=== PATIENT | male | born 1970 | race Caucasian/White ===

== ENCOUNTER 2020-07-04 12:22 | Emergency (ER) | payer SELFPAY ==
[~2020-07-04] VITALS: Ht 182 cm; Wt 97.0 kg
--- NOTE | 2020-07-04 12:44 | ED Back Pain ---
General Chief Complaint: Back Problems Stated Complaint: BACK PAIN Source of Information: Patient Exam Limitations: No Limitations History of Present Illness Date Seen by Provider: Jul 04, 2020 Time Seen by Provider: 12:43 Initial Comments To ER with c/o midline low back pain that radiates down bilateral thighs terminating mid thigh. No loss of bowel or bladder control, no numbness of the genitals no fevers or chills no trauma no IV drug use. This is been getting intermittently worse for a few weeks. He has a history of back troubles. Location: Lumbar Spine, Paraspinous Muscles Timing/Duration: 2-3 Days Severity: Moderate Associated Symptoms: No numbness in legs/feet; tingling in legs/feet, lower back pain; No loss of bladder control, No loss of bowel control Allergies and Home Medications Allergies Coded Allergies: No Known Drug Allergies (Unverified , 07/04/20) Home Medications Hydrocodone/Acetaminophen 1 Each Tablet, 1 TAB PO Q4H PRN for PAIN-MODERATE (5- 7) Prescribed by: MARIN HERNANDEZ on 07/04/20 1343 Prednisone 20 Mg Tab, 40 MG PO DAILY Prescribed by: MARIN HERNANDEZ on 07/04/20 1341 Patient Home Medication List Home Medication List Reviewed: Yes Review of Systems Constitutional: see HPI EENTM: see HPI Respiratory: no symptoms reported Cardiovascular: no symptoms reported Genitourinary: no symptoms reported Musculoskeletal: see HPI, back pain Skin: no symptoms reported Psychiatric/Neurological: No Symptoms Reported Physical Exam Vital Signs Vital Signs - First Documented 07/04/20 12:25 Temp 36.9 Pulse 73 Resp 20 B/P (MAP) 108/74 (85) Pulse Ox 100 Capillary Refill : Height, Weight, BMI Height: '" Weight: lbs. oz. kg; BMI Method: General Appearance: No Apparent Distress, WD/WN Neck: Full Range of Motion, Normal Inspection Respiratory: Normal Breath Sounds, No Accessory Muscle Use, No Respiratory Distress Gastrointestinal: Normal Bowel Sounds, Non Tender, Soft Neurologic/Psychiatric: Alert, Oriented x3 Skin: Normal Color, Warm/Dry Progress/Results/Core Measures Results/Orders My Orders Orders - MARIN HERNANDEZ APRN Ct Lumbar Spine Wo (07/04/20 12:39) Ketorolac Injection (Toradol Injection) (07/04/20 12:45) Orphenadrine Inj (Ed Only) (Norflex Inje (07/04/20 12:45) Medications Given in ED Current Medications Medications Dose Ordered Sig/Rohan Route Start Time Stop Time Status Last Admin Dose Admin Ketorolac Tromethamine 60 mg ONCE ONCE IM 07/04/20 12:45 07/04/20 12:46 DC 07/04/20 12:49 60 MG Orphenadrine Citrate 60 mg ONCE ONCE IM 07/04/20 12:45 07/04/20 12:46 DC 07/04/20 12:49 60 MG Vital Signs/I&O 07/04/20 12:25 Temp 36.9 Pulse 73 Resp 20 B/P (MAP) 108/74 (85) Pulse Ox 100 Departure Impression Primary Impression: Lumbar radiculopathy Disposition: HOME, SELF-CARE Condition: Stable Departure-Patient Inst. Decision time for Depature: 13:39 Referrals: NO,LOCAL PHYSICIAN (PCP/Family) Primary Care Physician Patient Instructions: Radiculopathy (DC) Add. Discharge Instructions: Follow-up or establish care with a physician of your choosing. Medication as directed. All discharge instructions reviewed with patient and/or family. Voiced understanding. Scripts Prednisone (Prednisone) 20 Mg Tab 40 MG PO DAILY, #6 TAB 0 Refills Prov: MARIN HERNANDEZ APRN 07/04/20 Oxycodone HCl/Acetaminophen (Percocet 7.5-325 mg Tablet) 1 Each Tablet 1 TAB PO Q6H PRN for PAIN-MODERATE MDD 4 TABS for 7 Days, #14 TAB Prov: MARIN HERNANDEZ APRN 07/04/20 Work/School Note: Work Release Form Date Seen in the Emergency Department: Jul 04, 2020 Return to Work: Jul 08, 2020 MARIN HERNANDEZ APRN Jul 04, 2020 12:44
[2020-07-04] MEDS ORDERED: ORPHENADRINE 60 MG/2 ML (NORFLEX) AMP (ED ONLY) IM ONE (12:45)
[2020-07-04] MEDS ORDERED: KETOROLAC 60 MG/2 ML VIAL IM ONE (12:45)
--- NOTE | 2020-07-04 13:34 | Diagnostic Imaging Report ---
PROCEDURE: CT lumbar spine without contrast. TECHNIQUE: Multiple contiguous axial images were obtained through the lumbar spine without the use of intravenous contrast. Sagittal and coronal reformations were then performed. Auto Exposure Controls were utilized during the CT exam to meet ALARA standards for radiation dose reduction. INDICATION: Back pain. COMPARISON: None. FINDINGS: There are five lumbar-type vertebral bodies. Normal alignment. Vertebral body heights are preserved. No fractures. Moderate degenerative endplate changes at L5-S1. No high-grade spinal canal stenosis is evident on soft tissue windows. Disc space height loss and osteophytic ridging result in moderate bilateral neuroforaminal narrowing at L5-S1. The visualized pelvis is intact. Paravertebral soft tissues are unremarkable. IMPRESSION: 1. Moderate spondylotic changes at L5-S1, resulting in moderate bilateral lateral recess narrowing. No evidence of spinal canal stenosis on soft tissue windows. 2. No acute CT findings in the lumbar spine. Dictated by: Dictated on workstation # [id number]
[2020-07-04] MEDS ORDERED: PRD20T PO ×2 (13:41→13:55)
[2020-07-04] MEDS ORDERED: ACHD5005 PO (13:41)
[2020-07-04 13:55] VITALS: BP 115/74
[2020-07-04] MEDS ORDERED: OXYC1TAB16 PO (13:55)
== END 2020-07-04 13:55 | disposition home or self-care (01) ==
LOC: ER 12:25
DX: M54.16 Radiculopathy, lumbar region (principal); Z79.52 Long term (current) use of systemic steroids
CPT/HCPCS: 72131

== ENCOUNTER 2020-10-12 11:51 | Emergency (ER) | payer SELFPAY ==
[~2020-10-12] VITALS: Ht 182 cm; Wt 90.7 kg
[~2020-10-12 11:51] MED LIST: ACHD5005 PO; OXYC1TAB16 PO; PRD20T PO
--- NOTE | 2020-10-12 12:13 | ED Lower Extremity ---
General Chief Complaint: Upper Extremity Stated Complaint: L KNEE SWOLLEN/PAIN, BACK PAIN Source: patient Exam Limitations: no limitations History of Present Illness Date Seen by Provider: Oct 12, 2020 Time Seen by Provider: 12:10 Initial Comments To ER with left knee swelling for about a week. He states this began swelling at random while he was at work. He does not recall any particular injury. He can fully extend the leg with has difficulty flexing the left knee because of pain and pressure sensation. No fevers no chills. Because has been sitting so much and because of the pain associated with walking he has been limping which has caused his sciatica to flareup. Onset: last week Severity: moderate Pain/Injury Location: left knee Method of Injury: unknown Modifying Factors: Worse With Movement Allergies and Home Medications Allergies Coded Allergies: No Known Drug Allergies (Unverified , 07/04/20) Home Medications Oxycodone HCl/Acetaminophen 1 Each Tablet, 1 TAB PO Q6H PRN for PAIN-MODERATE Prescribed by: MARIN HERNANDEZ on 07/04/20 1356 Oxycodone HCl/Acetaminophen 1 Each Tablet, 1 EACH PO Q4H PRN for PAIN-MODERATE Prescribed by: MARIN HERNANDEZ on 10/12/20 1249 Prednisone 20 Mg Tab, 40 MG PO DAILY Prescribed by: MARIN HERNANDEZ on 07/04/20 1355 Patient Home Medication List Home Medication List Reviewed: Yes Review of Systems Constitutional: see HPI EENTM: see HPI Respiratory: no symptoms reported Cardiovascular: no symptoms reported Genitourinary: no symptoms reported Musculoskeletal: see HPI, back pain Skin: no symptoms reported Psychiatric/Neurological: No Symptoms Reported Past Tfbxrnl-Eorhbr-Xxdnkm Hx Patient Social History Alcohol Use: Denies Use Smoking Status: Current Everyday Smoker Type Used: Cigarettes 2nd Hand Smoke Exposure: Yes Recent Hopitalizations: No Immunizations Up To Date Tetanus Booster (TDap): Unknown Past Medical History Surgeries: No Respiratory: No Cardiac: No Neurological: No Genitourinary: No Gastrointestinal: No Musculoskeletal: No Endocrine: No HEENT: No Cancer: No Psychosocial: No Integumentary: No Blood Disorders: No Physical Exam Vital Signs Vital Signs - First Documented 10/12/20 12:06 Temp 36.7 Pulse 99 Resp 20 B/P (MAP) 119/84 (96) Pulse Ox 96 O2 Delivery Room Air Capillary Refill : Height, Weight, BMI Height: '" Weight: lbs. oz. kg; 29.00 BMI Method: General Appearance: WD/WN, no apparent distress Respiratory: no respiratory distress, no accessory muscle use Hips: bilateral hip non-tender, bilateral hip normal inspection, bilateral hip normal range of motion Legs: bilateral leg non-tender, bilateral leg normal inspection, bilateral leg normal range of motion Knees: left knee pain, left knee soft tissue tenderness, left knee other Ankles: bilateral ankle non-tender, bilateral ankle normal inspection, bilateral ankle normal range of motion Feet: bilateral foot non-tender, bilateral foot normal inspection, bilateral foot normal range of motion Neurologic/Psychiatric: alert, normal mood/affect, oriented x 3 Skin: normal color, warm/dry Progress/Results/Core Measures Results/Orders Lab Results Laboratory Tests Test 10/12/20 12:40 Range/Units Body Fluid Source SYNOVIAL Body Fluid Color PALE YELLOW Body Fluid Appearance MOD CLDY Body Fluid WBC 325 /uL Body Fluid RBC 8300 /uL Body Fluid Polynuclear WBCs 52 % Body Fluid Mononuclear WBCs 8 % Body Fluid Lymphocytes 40 % Body Fluid Eosinophils 0 % Body Fluid Other Cells 0 % Body Fluid Crystals NOT SEEN My Orders Orders - MARIN HERNANDEZ APRN Knee, Left, 3 Views (10/12/20 12:06) Body Fluid Culture (10/12/20 12:06) Crystals,Body Fluid (10/12/20 12:06) Body Fluid Cell Count (10/12/20 12:06) Lidocaine 1% Inj 20 Ml (Xylocaine 1% Inj (10/12/20 12:15) Hydrocodone/Apap 5/325 Tablet (Lortab 5 (10/12/20 12:15) Triamcinolone Acetonide Im (Kenalog-40) (10/12/20 12:45) Medications Given in ED Vital Signs/I&O 10/12/20 10/12/20 12:06 12:52 Temp 36.7 36.7 Pulse 99 96 Resp 20 18 B/P (MAP) 119/84 (96) 119/84 Pulse Ox 96 96 O2 Delivery Room Air Room Air Departure Communication (Admissions) 1246-left knee effusion was drained. An area 1 cm superior and 1 cm lateral to the superior and lateral border of the patella this area was cleansed with Betadine which was allowed to dry. Using sterile technique lidocaine with a 27- gauge needle was used to infiltrate the skin. Then a larger 18-gauge 1-1/2 inch needle was inserted angled medial and inferior at this location. 37 mL of straw-colored synovial fluid was aspirated. This was blood-tinged. No cloudiness. Then unattached the syringe for aspiration and attached to syringe full of 5 mL of 1% lidocaine without epinephrine and 40 mg of triamcinolone this was injected into the joint space. Impression Primary Impression: Lumbar radiculopathy Additional Impression: Effusion, left knee Disposition: HOME, SELF-CARE Condition: Improved Departure-Patient Inst. Decision time for Depature: 12:48 Referrals: NO,LOCAL PHYSICIAN (PCP/Family) Primary Care Physician Patient Instructions: Knee Pain Add. Discharge Instructions: 1. Return to ER for any fevers chills or other concerns. Follow-up with your doctor next week. All discharge instructions reviewed with patient and/or family. Voiced understanding. Scripts Oxycodone HCl/Acetaminophen (Oxycodone-Acetaminophen 5-325) 1 Each Tablet 1 EACH PO Q4H PRN for PAIN-MODERATE MDD 6 for 3 Days, #14 TAB 0 Refills Prov: MARIN HERNANDEZ APRN 10/12/20 Work/School Note: Work Release Form Date Seen in the Emergency Department: Oct 12, 2020 Return to Work: Oct 14, 2020 MARIN HERNANDEZ APRN Oct 12, 2020 12:13
[2020-10-12] MEDS ORDERED: HYDROcodone/APAP 5 MG/325 MG (LORTAB) TAB PO ONE (12:15)
[2020-10-12] MEDS ORDERED: LIDOCAINE 1% INJ 20 ML 20 ML VIAL INJ ONE (12:15)
--- NOTE | 2020-10-12 12:37 | Diagnostic Imaging Report ---
EXAMINATION: Left knee at 1220 hours. INDICATION: Painful knee swelling. 3 views were obtained. There are no prior studies available for comparison. FINDINGS: There is no fracture, dislocation or acute bony abnormality evident. The knee joint is fairly well-maintained. Along the superior margin of the anterior patella, there is a well-circumscribed 7 mm calcific density. This may resent a sequela of prior trauma to the attachment of the quadriceps tendon. There also appears to be a moderate joint effusion present. The soft tissues are otherwise unremarkable. IMPRESSION: 1. There is a moderate joint effusion present but there is no sign of an acute bony abnormality. 2. If clinical concern regarding internal derangement of the knee joint exists, then MRI would be recommended for further evaluation. Dictated by: Dictated on workstation # [id number]
[2020-10-12] MEDS ORDERED: TRIAMCINOLONE ACET (KENALOG-40) 40 MG/ML 1 ML VIAL ONE (12:38)
[2020-10-12] MEDS ORDERED: TRIAMCINOLONE ACET (KENALOG-40) 40 MG/ML 1 ML VIAL IA ONE (12:45)
[2020-10-12] MEDS ORDERED: OXYC1TAB11 PO (12:49)
[2020-10-12 12:52] VITALS: BP 119/84
[2020-10-12 13:28] LABS: BODY FLUID APPEARENCE MOD CLDY; BODY FLUID SOURCE SYNOVIAL
[2020-10-12 13:29] LABS: BODY FLUID RBC COUNT 8300 /uL; BODY FLUID WBC TOTAL COUNT 325 /uL
[2020-10-12 13:31] LABS: BODY FLUID COLOR PALE YELLOW
[2020-10-12 15:12] LABS: BF OTHER CELLS 0 %; LYMPHOCYTES,BODY FLUID 40 %
== END 2020-10-12 12:54 | disposition home or self-care (01) ==
LOC: EDUNIT# 11:51 → ER 11:53
DX: M54.16 Radiculopathy, lumbar region (principal); M25.462 Effusion, left knee; F17.210 Nicotine dependence, cigarettes, uncomplicated; Z79.52 Long term (current) use of systemic steroids
CPT/HCPCS: 20610; 64450; 73562; 87070; 87205; 89051; 89060

== ENCOUNTER 2020-11-13 13:19 | Emergency (ER) | payer SELFPAY ==
[~2020-11-13 13:19] MED LIST changes: +OXYC1TAB11 PO
== END 2020-11-13 14:02 | disposition left against medical advice (07) ==
LOC: EDUNIT# 13:19 → ER 13:20
DX: M79.89 Other specified soft tissue disorders (principal)

== ENCOUNTER 2020-12-04 11:38 | Emergency (ER) | payer SELFPAY ==
[~2020-12-04] VITALS: Ht 182.9 cm; Wt 93.0 kg
[2020-12-04] MEDS ORDERED: BUPIVACAINE 0.5% 30 ML (SENSORCAINE) VIAL INJ ONE (12:45)
[2020-12-04] MEDS ORDERED: TRIAMCINOLONE ACET (KENALOG-40) 40 MG/ML 1 ML VIAL IA ONE (12:45)
[2020-12-04] MEDS ORDERED: ACHD5005 PO (13:10)
--- NOTE | 2020-12-04 13:10 | ED Lower Extremity ---
General Chief Complaint: Lower Extremity Stated Complaint: KNEE SWELLING Nursing Triage Note: PT AMBULATE TO TRIAGE WITH C/O LEFT KNEE SWELLING. PT REPORTS THIS IS CHRONIC. PT STATES HE CONTACTED HIS PCP AND WAS TOLD THAT THEY COULD NOT SEE HIM TODAY AND THAT HE SHOULD COME TO ED. PT STATES THAT PREVIOUSLY FLUID HAD TO BE DRAINED FROM KNEE. Source: patient Exam Limitations: no limitations History of Present Illness Date Seen by Provider: Dec 04, 2020 Time Seen by Provider: 12:30 Initial Comments To ER with left knee swelling onset last night. No fevers or chills. States that he had his left knee drained about a month ago. Has an appointment with Virgilio Purdy at [facility] on January 03. He feels like his knee is locking up. Onset: yesterday Severity: moderate Pain/Injury Location: left knee Method of Injury: unknown Modifying Factors: Worse With Movement Allergies and Home Medications Allergies Coded Allergies: No Known Drug Allergies (Unverified , 07/04/20) Home Medications Oxycodone HCl/Acetaminophen 1 Each Tablet, 1 TAB PO Q6H PRN for PAIN-MODERATE Prescribed by: MARIN HERNANDEZ on 07/04/20 1356 Oxycodone HCl/Acetaminophen 1 Each Tablet, 1 EACH PO Q4H PRN for PAIN-MODERATE Prescribed by: MARIN HERNANDEZ on 10/12/20 1249 Prednisone 20 Mg Tab, 40 MG PO DAILY Prescribed by: MARIN HERNANDEZ on 07/04/20 1355 Patient Home Medication List Home Medication List Reviewed: Yes Review of Systems Constitutional: see HPI EENTM: see HPI Respiratory: no symptoms reported Cardiovascular: no symptoms reported Genitourinary: no symptoms reported Musculoskeletal: joint swelling Skin: no symptoms reported Psychiatric/Neurological: No Symptoms Reported Past Kigtvmw-Plbuft-Eztstt Hx Patient Social History Tobacco Use?: Yes Tobacco type used: Cigarettes Smoking Status: Current Everyday Smoker Smokeless Tobacco Frequency: Never a User Substance use?: No Alcohol Use?: No Pt feels they are or have been: No Immunizations Up To Date Tetanus Booster (TDap): Unknown Past Medical History Surgeries: No Respiratory: No Cardiac: No Neurological: No Genitourinary: No Gastrointestinal: No Musculoskeletal: No Endocrine: No HEENT: No Cancer: No Psychosocial: No Integumentary: No Blood Disorders: No Physical Exam Vital Signs Vital Signs - First Documented 12/04/20 11:56 Temp 37.0 Pulse 76 Resp 18 B/P (MAP) 126/83 (97) O2 Delivery Room Air Capillary Refill : Less Than 3 Seconds Height, Weight, BMI Height: '" Weight: lbs. oz. kg; 27.00 BMI Method: General Appearance: WD/WN, no apparent distress HEENT: PERRL/EOMI, normal ENT inspection Neck: non-tender, full range of motion Respiratory: no respiratory distress, no accessory muscle use Hips: bilateral hip non-tender, bilateral hip normal inspection, bilateral hip normal range of motion Legs: bilateral leg non-tender, bilateral leg normal inspection, bilateral leg normal range of motion Knees: left knee joint effusion, left knee pain Ankles: bilateral ankle non-tender, bilateral ankle normal inspection, bilateral ankle normal range of motion Feet: bilateral foot non-tender, bilateral foot normal inspection, bilateral foot normal range of motion Neurologic/Psychiatric: alert, normal mood/affect, oriented x 3 Skin: normal color, warm/dry Procedures/Interventions Additional Procedures: Arthrocentesis Aspirating Progress An area at the superior and lateral border of the left patella was identified cleansed with Betadine and anesthetized locally with 1 mL of 1% lidocaine without epinephrine. A larger 18-gauge 1/2 inch needle was then inserted into the synovial space. A total of 27 mL of slightly bloody synovial fluid was aspirated. This was then injected with a total of 6 mL of 0.5% bupivacaine mixed with 40 mg (1 mL) of triamcinolone. Progress/Results/Core Measures Results/Orders My Orders Orders - MARIN HERNANDEZ APRN Bupivacaine 0.5% Injection (Sensorcaine (12/04/20 12:45) Triamcinolone Acetonide Im (Kenalog-40) (12/04/20 12:45) Body Fluid Cell Count (12/04/20 13:05) Body Fluid Culture (12/04/20 13:05) Crystals,Body Fluid (12/04/20 13:05) Medications Given in ED Current Medications Medications Dose Ordered Sig/Rohan Route Start Time Stop Time Status Last Admin Dose Admin Bupivacaine HCl 30 ml ONCE ONCE INJ 12/04/20 12:45 12/04/20 12:46 DC 12/04/20 12:59 30 ML Triamcinolone Acetonide 40 mg ONCE ONCE IA 12/04/20 12:45 12/04/20 12:46 DC 12/04/20 12:59 40 MG Vital Signs/I&O 12/04/20 11:56 Temp 37.0 Pulse 76 Resp 18 B/P (MAP) 126/83 (97) O2 Delivery Room Air Blood Pressure Mean: 97 Departure Impression Primary Impression: Effusion, left knee Disposition: HOME, SELF-CARE Condition: Stable Departure-Patient Inst. Decision time for Depature: 13:08 Referrals: NO,LOCAL PHYSICIAN (PCP/Family) Primary Care Physician Patient Instructions: NO INSTRUCTIONS GIVEN Add. Discharge Instructions: 1. Keep your appointment with Dr Virgilio Purdy. She will likely need to order an MRI of the knee given the locking sensation that you describe and recurrent effusion. This may represent a meniscus injury. All discharge instructions reviewed with patient and/or family. Voiced understanding. Scripts Hydrocodone/Acetaminophen (Hydrocodone-Acetamin 5-325 mg) 1 Each Tablet 1 TAB PO Q4H PRN for PAIN-MODERATE (5-7), #10 TAB Prov: MARIN HERNANDEZ APRN 12/04/20 Copy Copies To 1: VIRGILIO PURDY PETER J APRN Dec 04, 2020 13:10
[2020-12-04 13:15] VITALS: BP 133/72
[2020-12-04 14:19] LABS: BF OTHER CELLS 0 %; BODY FLUID APPEARENCE MOD CLDY; BODY FLUID COLOR YELLOW; BODY FLUID RBC COUNT 3350 /uL; BODY FLUID SOURCE SYNOVIAL; BODY FLUID WBC TOTAL COUNT 250 /uL; LYMPHOCYTES,BODY FLUID 92 %
== END 2020-12-04 13:15 | disposition home or self-care (01) ==
LOC: EDUNIT# 11:38 → ER 11:39
DX: M25.462 Effusion, left knee (principal); F17.210 Nicotine dependence, cigarettes, uncomplicated; Z79.52 Long term (current) use of systemic steroids
CPT/HCPCS: 87070; 87205; 89051; 89060

== ENCOUNTER 2020-12-08 19:16 | Emergency (ER) | payer SELFPAY ==
[~2020-12-08] VITALS: Ht 182.9 cm; Wt 95.3 kg
[2020-12-08 19:24] VITALS: BP 137/96
[2020-12-08] MEDS ORDERED: ONDANSETRON 4 MG/2 ML (SDV) Z0FRAN ONE (19:32)
[2020-12-08 19:35] LABS: HEMATOCRIT 45 % (40-54); HEMOGLOBIN 15.1 g/dL (13.3-17.7); MEAN CORPUSCULAR HEMOGLOBIN 30 pg (25-34); MEAN CORPUSCULAR HGB CONC 33 g/dL (32-36); MEAN CORPUSCULAR VOLUME 91 fL (80-99); MEAN PLATELET VOLUME 9.6 fL (9.0-12.2); PLATELET COUNT 278 10^3/uL (130-400)
[2020-12-08] MEDS ORDERED: ONDANSETRON 4 MG/2 ML (SDV) Z0FRAN IVP ONE (19:45)
[2020-12-08] MEDS ORDERED: LACTATED RINGERS 1,000 ML IV ONE (19:45)
[2020-12-08 19:46] LABS: ALBUMIN 4.5 GM/DL (3.2-4.5); CHLORIDE 108 MMOL/L (98-107); POTASSIUM 3.9 MMOL/L (3.6-5.0); SODIUM 142 MMOL/L (135-145)
[2020-12-08 19:47] LABS: CALCIUM 9.2 MG/DL (8.5-10.1)
[2020-12-08 19:48] LABS: AMYLASE 45 U/L (25-125)
[2020-12-08 19:49] LABS: GLUCOSE 94 MG/DL (70-105); TOTAL PROTEIN 7.6 GM/DL (6.4-8.2)
[2020-12-08 19:50] LABS: BILIRUBIN,TOTAL 0.3 MG/DL (0.1-1.0); CARBON DIOXIDE 24 MMOL/L (21-32); FIBRIN DEGRADATION PRODUCTS 0.13 UG/ML (0.00-0.49); INR 0.8 (0.8-1.4); PROTHROMBIN TIME PATIENT 11.8 SEC (12.2-14.7)
[2020-12-08 19:52] LABS: ALKALINE PHOSPHATASE 78 U/L (40-136); CREATININE SERUM 1.13 MG/DL (0.60-1.30); GFR ESTIMATED 68
[2020-12-08 19:53] LABS: BUN/CREATININE RATIO 14
[2020-12-08 19:54] LABS: BILIRUBIN,DIRECT 0.2 MG/DL (0.0-0.3); BILIRUBIN,INDIRECT 0.1 MG/DL
[2020-12-08 19:55] LABS: ALANINE AMINOTRANSFERASE 37 U/L (0-55); MAGNESIUM 2.3 MG/DL (1.6-2.4)
[2020-12-08 19:57] LABS: CREATINE KINASE 617 U/L (30-200); LIPASE 30 U/L (8-78)
[2020-12-08 19:58] LABS: ACETAMINOPHEN < 10 UG/ML (10-30)
[2020-12-08] MEDS ORDERED: NS 100 ML (IVPB) BAG IV ONE (20:00)
[2020-12-08] MEDS ORDERED: HOLD METFORMIN - RECEIVED CONTRAST 20 ML VIAL IV SCH (20:00)
[2020-12-08] MEDS ORDERED: IOHEXOL 350 MG/ML 100 ML (OMNIPAQUE 350) VIAL IV ONE (20:00)
--- NOTE | 2020-12-08 20:06 | Diagnostic Imaging Report ---
INDICATION: Fall from ladder with head and neck pain, loss of feeling in legs. TECHNIQUE: Multiple contiguous axial images were obtained through the brain and cervical spine without the use of intravenous contrast. Sagittal and coronal reformations through the cervical spine were then performed. Auto Exposure Controls were utilized during the CT exam to meet ALARA standards for radiation dose reduction. COMPARISON: There is no previous study for comparison. CT brain findings: There is no extra-axial fluid collection. No intracranial hemorrhage. No intracranial mass or mass effect. No midline shift. The ventricles are normal in size and position. There is no focal parenchymal abnormality in the brain. Orbital contents are unremarkable. Calvarial windows show no fracture. Visualized portions of the sinuses and mastoid air cells are well aerated. CT cervical spine findings: There is no evidence of cervical spine fracture. There is no subluxation or malalignment. There are minimal degenerative changes in the mid cervical spine. The facets are in good alignment. IMPRESSION: 1. CT brain was unremarkable. 2. CT cervical spine shows no acute abnormality. Dictated by: Dictated on workstation # [id number]
--- NOTE | 2020-12-08 20:19 | Diagnostic Imaging Report ---
INDICATION: Back pain post fall, decreased sensation in legs. TECHNIQUE: Multiple contiguous axial images were obtained through the thoracic and lumbar spine without the use of intravenous contrast. Sagittal and coronal reformations were then performed. All CT scans use one or more of the following dose optimizing techniques: automated exposure control, MA and/or KvP adjustment based on patient size and exam type or iterative reconstruction. COMPARISON: There is no previous thoracic CT for comparison. Comparison made to prior lumbar CT of 07/04/2020. FINDINGS: The thoracic vertebrae are normal in height and alignment with no fracture, subluxation or canal narrowing. There is no abnormality in the paravertebral soft tissues. The lumbar vertebrae are normal in height and alignment with no evidence of fracture or acute bone abnormality. There is disc space narrowing and osteophyte formation with vacuum disc effect at L5-S1. There is mild diffuse facet degenerative change. There is no overt canal stenosis. IMPRESSION: No acute abnormality in the thoracic or lumbar spine. There are mild degenerative findings. There is no overt canal stenosis. Dictated by: Dictated on workstation # [id number]
--- NOTE | 2020-12-08 20:19 | Diagnostic Imaging Report ---
INDICATION: Trauma with pelvic pain. EXAMINATION: AP pelvis obtained at 7:38 p.m. FINDINGS: No fracture or acute bony abnormality is seen. Joint spaces are unremarkable. IMPRESSION: Negative pelvis. Dictated by: Dictated on workstation # [id number]
--- NOTE | 2020-12-08 20:20 | Diagnostic Imaging Report ---
INDICATION: Fall from ladder with chest pain. EXAMINATION: Frontal chest was obtained at 7:39 p.m. COMPARISON: There is no prior study for comparison. FINDINGS: Heart and mediastinal silhouette appear normal. The lungs are clear. There is no pneumothorax or pleural fluid. There is no overt bony abnormality in the chest. IMPRESSION: Negative chest. Dictated by: Dictated on workstation # [id number]
--- NOTE | 2020-12-08 20:24 | Diagnostic Imaging Report ---
INDICATION: Trauma with fall from ladder and chest and abdominal pain. TECHNIQUE: Multiple contiguous axial images were obtained through the chest, abdomen, and pelvis after the administration of intravenous contrast. Auto Exposure Controls were utilized during the CT exam to meet ALARA standards for radiation dose reduction. COMPARISON: There is no prior CT chest, abdomen and pelvis for comparison. CT chest findings: There is no evidence of mediastinal hematoma. The thoracic aorta shows no evidence of injury. There is no evidence of aortic aneurysm or dissection. There is no pleural or pericardial fluid. There is no chest wall hematoma or lesion. Lung parenchymal windows demonstrate some dependent atelectatic changes but no randy contusion or mass lesion. Bony windows in the chest are unremarkable. CT abdomen/pelvis findings: The liver, spleen, adrenals, pancreas and kidneys all appear normal. There is no retroperitoneal mass or adenopathy. There is no ascites or abnormal fluid collection. Visualized bowel loops appear unremarkable. There is no free pelvic fluid or pneumoperitoneum. There is no pelvic fracture. IMPRESSION: Negative CT chest, abdomen and pelvis. Dictated by: Dictated on workstation # [id number]
--- NOTE | 2020-12-08 20:27 | Consultation - Surgery ---
History of Present Illness History of Present Illness Patient Consulted On(adams/time) 12/08/20 20:21 Time Seen by Provider: 19:50 History of Present Illness Type I Trauma activation. Pt is a 50 yo male who came in by private vehicle with complains of falling from ladder, "about 1 1/2 stories up". When pt spoke to ER physician he stated he couldn't feel his legs and was complaining of back, abdominal and neck pain. I met pt in the CT scanner. Once they got him off the table and brought him back to ER, he started complaining of leg pain. He also told the ER doctor that he was "out" for about 1/2 hour, he fell at 6:30 and his aunt found him at 7pm. When I asked him if he remembered the fall he said yes, "it about knocked the wind out of me and my boots off". ER physician also states he was talking very fast and then back in the room was somnolent. Pt stated he has "spinal stenosis" and that the fall must have aggravated it. He had CT here and MRI done at [place]. Pt denies alcohol and drugs. Allergies and Home Medications Allergies Coded Allergies: No Known Drug Allergies (Unverified , 07/04/20) Home Medications Hydrocodone/Acetaminophen 1 Each Tablet, 1 TAB PO Q4H PRN for PAIN-MODERATE (5- 7) Prescribed by: MARIN HERNANDEZ on 12/04/20 1310 Oxycodone HCl/Acetaminophen 1 Each Tablet, 1 TAB PO Q6H PRN for PAIN-MODERATE Prescribed by: MARIN HERNANDEZ on 07/04/20 1356 Oxycodone HCl/Acetaminophen 1 Each Tablet, 1 EACH PO Q4H PRN for PAIN-MODERATE Prescribed by: MARIN HERNANDEZ on 10/12/20 1249 Prednisone 20 Mg Tab, 40 MG PO DAILY Prescribed by: MARIN HERNANDEZ on 07/04/20 1355 Patient Home Medication List Home Medication List Reviewed: Yes Past Cvvjbch-Txjavz-Reygha Hx Patient Social History Smoking Status: Current Someday Smoker Type Used: Cigarettes 2nd Hand Smoke Exposure: Yes Recent Hopitalizations: No Alcohol Use?: No (Quit, was an alcoholic) Substance type: Methamphetamine Immunizations Up To Date Tetanus Booster (TDap): Unknown Surgeries History of Surgeries: No Respiratory History of Respiratory Disorde: No Cardiovascular History of Cardiac Disorders: No Neurological History of Neurological Disord: No Genitourinary History of Genitourinary Disor: No Gastrointestinal History of Gastrointestinal Di: No Musculoskeletal History of Musculoskeletal Dis: No Endocrine History of Endocrine Disorders: No HEENT History of HEENT Disorders: No Cancer History of Cancer: No Psychosocial History of Psychiatric Problem: No Integumentary History of Skin or Integumenta: No Blood Transfusions History of Blood Disorders: No Family Medical History Significant Family History: Cancer (Father had lung and brain, Mother had uterine and breast) Review of Systems-General Constitutional: dizziness; No weight loss EENTM: No blurred vision, No mouth pain, No mouth swelling Respiratory: No cough, No dyspnea on exertion, No hemoptysis, No short of breath Cardiovascular: chest pain; No Hx of Intervention, No palpitations Gastrointestinal: abdominal pain; No melena, No nausea, No vomiting Genitourinary: No dysuria, No frequency, No hematuria Musculoskeletal: back pain, joint pain, joint swelling, muscle pain, muscle stiffness, muscle cramps Skin: No change in color, No change in hair/nails Psychiatric/Neurological: Denies Anxiety, Denies Depressed, Denies Seizure, Denies Tremors Physical Exam-General Problems Physical Exam Vital Signs Capillary Refill : General Appearance: WD/WN, mild distress Eyes: Bilateral Eye PERRL, Bilateral Eye Abnormal EOM HEENT: pharynx normal; No scleral icterus (R), No scleral icterus (L) Neck: tender midline; No thyromegaly Respiratory: lungs clear, normal breath sounds, no respiratory distress, no accessory muscle use Cardiovascular: regular rate, rhythm, no murmur Gastrointestinal: non tender, soft, no organomegaly Back: CVA tenderness (R), CVA tenderness (L), vertebral tenderness Extremities: no pedal edema, no calf tenderness Neurologic/Psychiatric: alert, oriented x 3, other (pt has good proprioception of toes, feeling down entire leg) Skin: normal color, warm/dry Lymphatic: no adenopathy (neck, axilla or groin) Data Review Labs Laboratory Tests 12/08/20 19:29: White Blood Count 11.0, Red Blood Count 4.96, Hemoglobin 15.1, Hematocrit 45, Mean Corpuscular Volume 91, Mean Corpuscular Hemoglobin 30, Mean Corpuscular Hemoglobin Concent 33, Red Cell Distribution Width 13.6, Platelet Count 278, Mean Platelet Volume 9.6, Prothrombin Time 11.8L, INR Comment 0.8, Activated Partial Thromboplast Time 31, D-Dimer 0.13, Sodium Level 142, Potassium Level 3.9, Chloride Level 108H, Carbon Dioxide Level 24, Anion Gap 10, Blood Urea Nitrogen 16, Creatinine 1.13, Estimat Glomerular Filtration Rate 68, BUN/Creatinine Ratio 14, Glucose Level 94, Calcium Level 9.2, Magnesium Level 2.3, Total Bilirubin 0.3, Direct Bilirubin 0.2, Indirect Bilirubin 0.1, Aspartate Amino Transf (AST/SGOT) 29, Alanine Aminotransferase (ALT/SGPT) 37, Alkaline Phosphatase 78, Total Creatine Kinase 617H, Creatine Kinase MB 7.0*H, Myoglobin 239.9H, Troponin I < 0.028, Total Protein 7.6, Albumin 4.5, Amylase Level 45, Lipase 30, Acetaminophen Level < 10L, Serum Alcohol < 10 Assessment/Plan Assessment/Plan Assessment/Plan Trauma Type I Activation Transient paralysis CT of head and neck read as negative, the rest of it is not back yet. He is now leaving AMA. ODILIA AVERY DO Dec 08, 2020 20:27
--- NOTE | 2020-12-08 20:56 | ED Fall/Injury ---
General Chief Complaint: Trauma POV Arrival Activation Stated Complaint: FELL 15 FT FROM LADDER, NAUSEA, NUMB LEGS Source: patient History of Present Illness Date Seen by Provider: Dec 08, 2020 Time Seen by Provider: 19:20 Initial Comments PT ARRIVES VIA POV FROM HOME PT WALKS IN, BUT WITH GREAT DIFFICULTY, AND NEEDS ASSISTANCE/WHEELCHAIR SOON HE ARRIVES PT STATES HE FELL 15-20 FEET OFF THE TOP OF A LADDER--WAS 1 1/2 STORIES UP, CLEANING OUT GUTTERS, AND WAS ON VERY TOP OF THE LADDER WHEN HE FELL STATES THIS OCCURRED AROUND 1829 AND HIS AUNT FOUND HIM ON THE GROUND AROUND 1899--WAS NOT WITNESSED BY ANYONE, PER PT PT STATES HE WAS KNOCKED OUT AND UNCONSCIOUS UNTIL HIS AUNT FOUND HIM C/O SEVERE PAIN IN HIS BACK AND STATES HE CANNOT FEEL HIS LEGS C/O NAUSEA AND HAVING DRY HEAVES ON ARRIVAL DENIES CHEST PAIN OR SHORTNESS OF BREATH, BUT STATES BREATHING MAKES HIS BACK HURT. DENIES ABDOMINAL PAIN DENIES PAIN IN HIS HEAD LEVEL 1 TRAUMA ACTIVATION INITIATED ON ARRIVAL CERVICAL COLLAR IMMEDIATELY PLACED ON PATIENT AND HE NOW C/O MUCH PAIN IN HIS NECK WELL HIS BACK 1919--DR. AVERY, TRAUMA SURGEON, WAS CONTACTED BY ZARINA HERNANDEZ AND HE WAS INFORMED OF LEVEL 1 TRAUMA ACTIVATION. PT STATES HE HAS BEEN ON SUBOXONE FOR METHAMPHETAMINE ADDICTION, BUT STATES HE HAS NOT HAD ANY FOR A WEEK STATES HE USED TO DRINK HEAVILY, BUT CLAIMS NO RECENT USE Allergies and Home Medications Allergies Coded Allergies: No Known Drug Allergies (Unverified , 07/04/20) Home Medications Hydrocodone/Acetaminophen 1 Each Tablet, 1 TAB PO Q4H PRN for PAIN-MODERATE (5- 7) Prescribed by: MARIN HERNANDEZ on 12/04/20 1310 Oxycodone HCl/Acetaminophen 1 Each Tablet, 1 TAB PO Q6H PRN for PAIN-MODERATE Prescribed by: MARIN HERNANDEZ on 07/04/20 1356 Oxycodone HCl/Acetaminophen 1 Each Tablet, 1 EACH PO Q4H PRN for PAIN-MODERATE Prescribed by: MARIN HERNANDEZ on 10/12/20 1249 Prednisone 20 Mg Tab, 40 MG PO DAILY Prescribed by: MARIN HERNANDEZ on 07/04/20 1355 Review of Systems Review of Systems Constitutional: no symptoms reported; No dizziness Respiratory: no symptoms reported Cardiovascular: no symptoms reported Gastrointestinal: see HPI Musculoskeletal: see HPI, back pain, neck pain Skin: no symptoms reported Psychiatric/Neurological: See HPI; Denies Headache; Numbness, Paresthesia Past Vviesqd-Cgnmps-Dxdrhp Hx Patient Social History Tobacco Use?: Yes (1 PPD) Tobacco type used: Cigarettes Smoking Status: Current Someday Smoker Substance use?: Yes Substance type: Methamphetamine Additional substance use comme: METH USE, SUBOXONE Alcohol Use?: Yes (HX OF ABUSE, CLAIMS NOW "OCCASIONAL" USE) Immunizations Up To Date Tetanus Booster (TDap): Unknown Past Medical History Surgery/Hospitalization HX: PT STATES HE HAS BEEN CARDIOVERTED 11 TIMES FOR ATRIAL FIBRILLATION, HAS NOT BEEN ON BLOOD THINNERS SINCE Surgeries: No Respiratory: No Cardiac: Yes (HX OF A FIB-HAS BEEN CARDIOVERTED 11 TIMES) Atrial Fibrillation Neurological: No Genitourinary: No Gastrointestinal: No Musculoskeletal: No Endocrine: No HEENT: No Cancer: No Psychosocial: Yes (SUBSTANCE ABUSE) Integumentary: No Blood Disorders: No Family Medical History Cancer (Father had lung and brain, Mother had uterine and breast) Physical Exam Vital Signs Capillary Refill : Height, Weight, BMI Height: '" Weight: lbs. oz. kg; 27.00 BMI Method: General Appearance: WD/WN, no apparent distress, other (SPEECH RAPID AND THICK- TONGUED, ) HEENT: other (PUPILS 2 MM AND EQUAL) Neck: tender lateral, tender midline Cardiovascular: normal peripheral pulses, regular rate, rhythm, no edema, no gallop, no JVD, no murmur Respiratory: chest non-tender, normal breath sounds, no respiratory distress, no accessory muscle use Gastrointestinal: other (RUQ AND LUQ WITH MARKED TENERNESS AND ENTIRE ABDOMEN IS FIRM, BUT NOT DISTENDED) Progress/Results/Core Measures Results/Orders Lab Results Laboratory Tests Test 12/08/20 19:29 Range/Units White Blood Count 11.0 4.3-11.0 10^3/uL Red Blood Count 4.96 4.30-5.52 10^6/uL Hemoglobin 15.1 13.3-17.7 g/dL Hematocrit 45 40-54 % Mean Corpuscular Volume 91 80-99 fL Mean Corpuscular Hemoglobin 30 25-34 pg Mean Corpuscular Hemoglobin Concent 33 32-36 g/dL Red Cell Distribution Width 13.6 10.0-14.5 % Platelet Count 278 130-400 10^3/uL Mean Platelet Volume 9.6 9.0-12.2 fL Prothrombin Time 11.8 L 12.2-14.7 SEC INR Comment 0.8 0.8-1.4 Activated Partial Thromboplast Time 31 24-35 SEC D-Dimer 0.13 0.00-0.49 UG/ML Sodium Level 142 135-145 MMOL/L Potassium Level 3.9 3.6-5.0 MMOL/L Chloride Level 108 H 98-107 MMOL/L Carbon Dioxide Level 24 21-32 MMOL/L Anion Gap 10 5-14 MMOL/L Blood Urea Nitrogen 16 7-18 MG/DL Creatinine 1.13 0.60-1.30 MG/DL Estimat Glomerular Filtration Rate 68 BUN/Creatinine Ratio 14 Glucose Level 94 70-105 MG/DL Calcium Level 9.2 8.5-10.1 MG/DL Magnesium Level 2.3 1.6-2.4 MG/DL Total Bilirubin 0.3 0.1-1.0 MG/DL Direct Bilirubin 0.2 0.0-0.3 MG/DL Indirect Bilirubin 0.1 MG/DL Aspartate Amino Transf (AST/SGOT) 29 5-34 U/L Alanine Aminotransferase (ALT/SGPT) 37 0-55 U/L Alkaline Phosphatase 78 40-136 U/L Total Creatine Kinase 617 H 30-200 U/L Creatine Kinase MB 7.0 *H <6.6 NG/ML Myoglobin 239.9 H 10.0-92.0 NG/ML Troponin I < 0.028 <0.028 NG/ML Total Protein 7.6 6.4-8.2 GM/DL Albumin 4.5 3.2-4.5 GM/DL Amylase Level 45 25-125 U/L Lipase 30 8-78 U/L Acetaminophen Level < 10 L 10-30 UG/ML Serum Alcohol < 10 <10 MG/DL My Orders Orders - EMILIANO CUASEY DO Acetaminophen (12/08/20 19:32) Amylase (12/08/20 19:32) Creatine Kinase (12/08/20 19:32) Creatine Kinase Mb (12/08/20 19:32) Fibrin Degradation Products (12/08/20 19:32) Drug Screen Stat (Urine) (12/08/20 19:32) Lipase (12/08/20 19:32) Magnesium (8/6/21 19:32) Protime With Inr (12/08/20 19:32) Partial Thromboplastin Time (12/08/20 19:32) Myoglobin Serum (12/08/20 19:32) Troponin I (12/08/20 19:32) Ondansetron Injection (Zofran Injectio (12/08/20 19:45) Ed Iv/Invasive Line Start (12/08/20 19:32) Lactated Ringers (Lr 1000 Ml Iv Solution (12/08/20 19:45) Ondansetron Injection (Zofran Injectio (12/08/20 19:32) Ct Chest/Abdomen/Pelvis W (12/08/20 ) Iohexol Injection (Omnipaque 350 Mg/Ml 1 (12/08/20 20:00) Received Contrast (Hold Metformin- Contr (12/08/20 20:00) Ns (Ivpb) (Sodium Chloride 0.9% Ivpb Bag (12/08/20 20:00) Catheter(Urinary) Insert & Ass 03,15 (12/08/20 19:59) Cervical Collar (12/08/20 19:59) Pelvis (12/08/20 ) Medications Given in ED Current Medications Medications Dose Ordered Sig/Rohan Route Start Time Stop Time Status Last Admin Dose Admin Iohexol 100 ml ONCE ONCE IV 12/08/20 20:00 12/08/20 20:01 DC 12/08/20 20:15 90 ML Sodium Chloride 100 ml ONCE ONCE IV 12/08/20 20:00 12/08/20 20:01 DC 12/08/20 20:15 80 ML Departure Departure-Patient Inst. Referrals: NO,LOCAL PHYSICIAN (PCP/Family) Primary Care Physician EMILIANO CAUSEY DO Dec 08, 2020 20:56
== END 2020-12-08 20:30 | disposition left against medical advice (07) ==
LOC: EDUNIT# 19:16 → ER 19:20
DX: M54.9 Dorsalgia, unspecified (principal); M54.2 Cervicalgia; F17.210 Nicotine dependence, cigarettes, uncomplicated; Z79.52 Long term (current) use of systemic steroids
CPT/HCPCS: 70450; 71045; 71260; 72125; 72128; 72131; 72170; 74177; 80048; 80076; 82150; 82550; 82553; 83690; 83735; 83874; 84484; 85027; 85379; 85610; 85730; 86850; 86900; 86901; 93041; 99291; G0480 ×2; 36415; 80320; 80329; 93005

== ENCOUNTER 2021-03-12 10:32 | Emergency (ER) | payer SELFPAY ==
[~2021-03-12] VITALS: Ht 182 cm; Wt 95.3 kg
[2021-03-12] MEDS ORDERED: OXYC1TAB15 PO (10:51)
[2021-03-12] MEDS ORDERED: PRD20T PO (10:51)
--- NOTE | 2021-03-12 10:51 | ED Back Pain ---
General Chief Complaint: Back Problems Stated Complaint: LEGS NUMB, BACK PAIN Nursing Triage Note: PT AMB TO [facility], PT CO OF SEVERE BACK PAIN, DOWN BACK, BOTH BUTTOCKS AND NUMBNESS DOWN LEGS. TAKING TYLENOL AND MOTRIN FOR PAIN, RATES PAIN 12/12. PT STATES SCHEDULED FOR MRI ON FRIDAY Source of Information: Patient Exam Limitations: No Limitations History of Present Illness Date Seen by Provider: Mar 12, 2021 Time Seen by Provider: 10:48 Initial Comments To ER with severe midline low back pain that radiates down both legs. No loss of bowel or bladder control but he does have trouble getting to the bathroom in time because movement is so painful. No falls no fever no chills no history of cancer no recent injury. Has had 2 lumbar spine CTs this year and is scheduled for a lumbar spine MRI on 03/14/2021. He is taking nothing for pain at home. Location: Lumbar Spine, Paraspinous Muscles Timing/Duration: 1-2 Days Severity: Moderate Pain/Injury Location: Back Method of Injury: Unknown Associated Symptoms: lower back pain Allergies and Home Medications Allergies Coded Allergies: No Known Drug Allergies (Unverified , 07/04/20) Patient Home Medication List Home Medication List Reviewed: Yes Hydrocodone/Acetaminophen (Hydrocodone-Acetamin 5-325 mg) 1 Each Tablet, 1 TAB PO Q4H PRN for PAIN-MODERATE (5-7) Prescribed by: MARIN HERNANDEZ on 12/04/20 1310 Oxycodone HCl/Acetaminophen (Percocet 7.5-325 mg Tablet) 1 Each Tablet, 1 TAB PO Q6H PRN for PAIN-MODERATE Prescribed by: MARIN HERNANDEZ on 07/04/20 1356 Oxycodone HCl/Acetaminophen (Oxycodone-Acetaminophen 5-325) 1 Each Tablet, 1 EACH PO Q4H PRN for PAIN-MODERATE Prescribed by: MARIN HERNANDEZ on 10/12/20 1249 Prednisone (Prednisone) 20 Mg Tab, 40 MG PO DAILY Prescribed by: MARIN HERNANDEZ on 07/04/20 1355 Review of Systems Constitutional: see HPI; No chills, No fever EENTM: see HPI Respiratory: no symptoms reported Cardiovascular: no symptoms reported Genitourinary: no symptoms reported Musculoskeletal: no symptoms reported (Good) Skin: no symptoms reported Psychiatric/Neurological: No Symptoms Reported Past Onsmkjy-Iclaxe-Epnuup Hx Immunizations Up To Date Tetanus Booster (TDap): Unknown Past Medical History Surgery/Hospitalization HX: PT STATES HE HAS BEEN CARDIOVERTED 11 TIMES FOR ATRIAL FIBRILLATION, HAS NOT BEEN ON BLOOD THINNERS SINCE Surgeries: No Respiratory: No Cardiac: Yes (HX OF A FIB-HAS BEEN CARDIOVERTED 11 TIMES) Atrial Fibrillation Neurological: No Genitourinary: No Gastrointestinal: No Musculoskeletal: No Endocrine: No HEENT: No Cancer: No Psychosocial: Yes (SUBSTANCE ABUSE) Integumentary: No Blood Disorders: No Family Medical History Cancer VERBAL PER PT ON 12/08/20--HAS HAD COVID EARLIER IN 2020--NO TREATMENT OR HOSPITALIZATION Physical Exam Vital Signs Vital Signs - First Documented 03/12/21 10:35 Temp 37.0 Pulse 101 Resp 18 B/P (MAP) 103/71 (82) Pulse Ox 95 Capillary Refill : Less Than 3 Seconds Height, Weight, BMI Height: '" Weight: lbs. oz. kg; 28.00 BMI Method: General Appearance: No Apparent Distress, WD/WN Neck: Full Range of Motion, Normal Inspection Respiratory: No Accessory Muscle Use, No Respiratory Distress Gastrointestinal: Normal Bowel Sounds, Non Tender, Soft Extremity: Normal Capillary Refill, Normal Inspection, Other (Both lower extremities are warm and well perfused) Neurologic/Psychiatric: Alert, Oriented x3 Skin: Normal Color, Warm/Dry Progress/Results/Core Measures Results/Orders My Orders Orders - MARIN HERNANDEZ APRN Ketorolac Injection (Toradol Injection) (03/12/21 11:00) Orphenadrine Inj (Ed Only) (Norflex Inje (03/12/21 11:00) Vital Signs/I&O 03/12/21 10:35 Temp 37.0 Pulse 101 Resp 18 B/P (MAP) 103/71 (82) Pulse Ox 95 Blood Pressure Mean: 82 Departure Impression Primary Impression: Lumbar radiculopathy Disposition: 01 HOME, SELF-CARE Condition: Stable Departure-Patient Inst. Decision time for Depature: 10:50 Referrals: NO,LOCAL PHYSICIAN (PCP/Family) Primary Care Physician Patient Instructions: Radiculopathy Add. Discharge Instructions: 1. Keep your appointment with MRI here. All discharge instructions reviewed with patient and/or family. Voiced understanding. Scripts Prednisone (Prednisone) 20 Mg Tab 60 MG PO DAILY, #6 TAB 0 Refills Prov: MARIN HERNANDEZ APRN 03/12/21 Oxycodone HCl/Acetaminophen (Oxycodon-Acetaminophen 7.5-325) 1 Each Tablet 1 EACH PO Q6H PRN for PAIN-MODERATE MDD 4 for 7 Days, #14 TAB Prov: MARIN HERNANDEZ APRN 03/12/21 MARIN HERNANDEZ APRN Mar 12, 2021 10:51
[2021-03-12] MEDS ORDERED: KETOROLAC 60 MG/2 ML VIAL IM ONE (11:00)
[2021-03-12] MEDS ORDERED: ORPHENADRINE 60 MG/2 ML (NORFLEX) AMP (ED ONLY) IM ONE (11:00)
[2021-03-12 11:12] VITALS: BP 103/71
== END 2021-03-12 11:12 | disposition home or self-care (01) ==
LOC: EDUNIT# 10:32 → ER 10:35
DX: M54.16 Radiculopathy, lumbar region (principal)
CPT/HCPCS: 99284

== ENCOUNTER → 2021-05-30 | Outpatient (REF) ==
[~2021-05-30] MED LIST changes: +OXYC1TAB15 PO
--- NOTE | 2021-05-30 13:05 | Diagnostic Imaging Report ---
INDICATION: Right wrist pain post injury. AP, oblique, lateral views of the right wrist are obtained. No fracture or acute bony abnormality seen. Joint spaces are unremarkable. IMPRESSION: Negative right wrist. Dictated by: Dictated on workstation # [id number]
--- NOTE | 2021-05-30 13:15 | Diagnostic Imaging Report ---
CLINICAL HISTORY: Acute neck pain. Lifting injury. COMPARISON: 12/08/2020. TECHNIQUE: Four views of the cervical spine. FINDINGS: There is no acute fracture or dislocation of the cervical spine. Alignment is anatomic. The vertebral body heights and disc spaces are maintained. The dens is normal. The prevertebral soft tissues have a normal appearance. The included lung apices are clear. IMPRESSION: 1. No acute fracture or dislocation in the cervical spine. Dictated by: Dictated on workstation # [id number]
== END ==
LOC: OCC 12:21
PROVIDERS: ATTEND Nurse Practitioner Family
DX: M25.531 Pain in right wrist (principal); M54.2 Cervicalgia
CPT/HCPCS: 72050; 73110

== ENCOUNTER 2021-06-30 15:18 | Emergency (ER) | payer SELFPAY ==
[~2021-06-30] VITALS: Ht 182.8 cm; Wt 97.5 kg
[2021-06-30 15:28] VITALS: BP 123/83
[2021-06-30] MEDS ORDERED: HYDROcodone/APAP 5 MG/325 MG (LORTAB) TAB PO ONE (15:45)
--- NOTE | 2021-06-30 15:45 | ED Upper Extremity ---
General Chief Complaint: Upper Extremity Stated Complaint: LEFT ELBOW PAIN/SWELLING Nursing Triage Note: PT AMB TO FT WITH COMPLAINT OF LEFT ELBOW PAIN. STATES ELBOW IS SWOLLEN AND STIFF. PT STATES HE SLIPPED YESTERDAY ON THE ICE AND CAUGHT HIMSELF WITH HIS LEFT HAND. Source: patient Exam Limitations: no limitations History of Present Illness Date Seen by Provider: Jun 30, 2021 Time Seen by Provider: 15:45 Initial Comments To ER with anterior and medial left elbow pain. He awakened with this this morning. He fell last night on an outstretched left hand though he had no pain at the time. Onset: just prior to arrival Pain/Injury Location: left elbow Method of Injury: fell Modifying Factors: Worse With Movement Allergies and Home Medications Allergies Coded Allergies: No Known Drug Allergies (Unverified , 07/04/20) Patient Home Medication List Home Medication List Reviewed: Yes Hydrocodone/Acetaminophen (Hydrocodone-Acetamin 5-325 mg) 1 Each Tablet, 1 TAB PO Q4H PRN for PAIN-MODERATE (5-7) Prescribed by: MARIN HERNANDEZ on 12/04/20 1310 Hydrocodone/Acetaminophen (Hydrocodone-Acetamin 5-325 mg) 1 Each Tablet, 1 TAB PO Q4H PRN for PAIN-MODERATE (5-7) Prescribed by: MARIN HERNANDEZ on 06/30/21 1616 Oxycodone HCl/Acetaminophen (Percocet 7.5-325 mg Tablet) 1 Each Tablet, 1 TAB PO Q6H PRN for PAIN-MODERATE Prescribed by: MARIN HERNANDEZ on 07/04/20 1356 Oxycodone HCl/Acetaminophen (Oxycodone-Acetaminophen 5-325) 1 Each Tablet, 1 EACH PO Q4H PRN for PAIN-MODERATE Prescribed by: MARIN HERNANDEZ on 10/12/20 1249 Oxycodone HCl/Acetaminophen (Oxycodon-Acetaminophen 7.5-325) 1 Each Tablet, 1 EACH PO Q6H PRN for PAIN-MODERATE Prescribed by: MARIN HERNANDEZ on 03/12/21 1051 Prednisone (Prednisone) 20 Mg Tab, 40 MG PO DAILY Prescribed by: MARIN HERNANDEZ on 07/04/20 1355 Prednisone (Prednisone) 20 Mg Tab, 60 MG PO DAILY Prescribed by: MARIN HERNANDEZ on 03/12/21 1051 Review of Systems Constitutional: see HPI EENTM: see HPI Respiratory: no symptoms reported Cardiovascular: no symptoms reported Genitourinary: no symptoms reported Musculoskeletal: see HPI Skin: no symptoms reported Psychiatric/Neurological: No Symptoms Reported Past Mqlgmla-Xxabds-Vfiilw Hx Patient Social History Tobacco Use?: Yes Tobacco type used: Cigarettes Smoking Status: Current Everyday Smoker Use of E-Cig and/or Vaping dev: No Substance use?: No Alcohol Use?: No Pt feels they are or have been: No Immunizations Up To Date Tetanus Booster (TDap): Unknown First/Initial COVID19 Vaccinat: FEBRUARY 2021 Second COVID19 Vaccination Joe: MARCH 2021 COVID19 Vaccine [employer]: [employer] Past Medical History Surgery/Hospitalization HX: PT STATES HE HAS BEEN CARDIOVERTED 11 TIMES FOR ATRIAL FIBRILLATION, HAS NOT BEEN ON BLOOD THINNERS SINCE Surgeries: No Respiratory: No Cardiac: Yes (HX OF A FIB-HAS BEEN CARDIOVERTED 11 TIMES) Atrial Fibrillation Neurological: No Genitourinary: No Gastrointestinal: No Musculoskeletal: No Endocrine: No HEENT: No Cancer: No Psychosocial: Yes (SUBSTANCE ABUSE) Integumentary: No Blood Disorders: No Family Medical History Cancer VERBAL PER PT ON 12/08/20--HAS HAD COVID EARLIER IN 2020--NO TREATMENT OR HOSPITALIZATION Physical Exam Vital Signs Vital Signs - First Documented 06/30/21 15:28 Pulse 85 Resp 16 B/P (MAP) 123/83 (96) Pulse Ox 98 O2 Delivery Room Air Capillary Refill : Height, Weight, BMI Height: '" Weight: lbs. oz. kg; 29.00 BMI Method: General Appearance: WD/WN, no apparent distress HEENT: PERRL/EOMI, normal ENT inspection Respiratory: no respiratory distress, no accessory muscle use Shoulder: normal inspection, non-tender Elbow/Forearm: Left, soft tissue tenderness, swelling Wrist: Yes normal inspection, Yes non-tender Hand: normal inspection, non-tender Neurologic/Psychiatric: alert, normal mood/affect, oriented x 3 Skin: normal color, warm/dry Progress/Results/Core Measures Results/Orders My Orders Orders - MARIN HERNANDEZ APRN Elbow, Left, 3 Views (06/30/21 15:44) Hydrocodone/Apap 5/325 Tablet (Lortab 5 (06/30/21 15:45) Medications Given in ED Current Medications Medications Dose Ordered Sig/Rohan Route Start Time Stop Time Status Last Admin Dose Admin Acetaminophen/ Hydrocodone Bitart 1 ea ONCE ONCE PO 06/30/21 15:45 06/30/21 15:46 DC 06/30/21 15:59 1 EA Vital Signs/I&O 06/30/21 15:28 Pulse 85 Resp 16 B/P (MAP) 123/83 (96) Pulse Ox 98 O2 Delivery Room Air Blood Pressure Mean: 96 Departure Impression Primary Impression: Left elbow pain Disposition: HOME, SELF-CARE Condition: Stable Departure-Patient Inst. Decision time for Depature: 16:14 Referrals: NO,LOCAL PHYSICIAN (PCP/Family) Primary Care Physician Patient Instructions: Elbow Sprain ED Add. Discharge Instructions: 1. There is no fracture seen on x-ray. If there is a very small fracture these can be difficult to see at the radial head. If you have ongoing pain in the next week follow-up with your primary care provider to discuss repeat x-ray. In the meantime sling as directed, ice pack, ibuprofen and prescribed pain medication for pain control. All discharge instructions reviewed with patient and/or family. Voiced understanding. Scripts Hydrocodone/Acetaminophen (Hydrocodone-Acetamin 5-325 mg) 1 Each Tablet 1 TAB PO Q4H PRN for PAIN-MODERATE (5-7), #10 TAB Prov: MARIN HERNANDEZ APRN 06/30/21 Work/School Note: Work Release Form Date Seen in the Emergency Department: Jun 30, 2021 Return to Work: Jul 03, 2021 MARIN HERNANDEZ APRN Jun 30, 2021 15:45
--- NOTE | 2021-06-30 16:10 | Diagnostic Imaging Report ---
INDICATION: Pain, swelling. COMPARISON: None available. TECHNIQUE: Three radiographs of the left elbow dated June 30, 2021. FINDINGS: Tiny linear calcifications are identified adjacent to the medial epicondyle as well as adjacent to the olecranon. No acute fracture or dislocation. No destructive osseous process. Joint spaces are well maintained. Minimal osteophytosis. No elbow joint effusion. IMPRESSION: 1. No acute osseous abnormality with mild degenerative changes present. 2. Tiny calcifications adjacent to the medial epicondyle and olecranon felt to relate to soft tissue calcifications from prior remote epicondylitis/tendinitis. Dictated by: Dictated on workstation # [id number]
[2021-06-30] MEDS ORDERED: ACHD5005 PO (16:15)
== END 2021-06-30 16:33 | disposition home or self-care (01) ==
LOC: EDUNIT# 15:18 → ER 15:21
DX: M25.522 Pain in left elbow (principal); F17.210 Nicotine dependence, cigarettes, uncomplicated
CPT/HCPCS: 73080; 99282; A4565